=== PATIENT | male | born 1930 | race Caucasian/White ===

== ENCOUNTER 2017-12-31 21:43 | Inpatient (IN) | payer MEDICARE, BC ==
[~2017-12-31] VITALS: Ht 190.5 cm; Wt 76.7 kg
[2017-12-31 22:20] LABS: BASOPHILS # (AUTO) 0.05 x10^3/uL (0-0.1); BASOPHILS % (AUTO) 1 % (0-1); EOSINOPHILS # (AUTO) 0.13 x10^3/uL (0-0.4); EOSINOPHILS % (AUTO) 2 % (1-7); LYMPHOCYTES % (AUTO) 13 % (22-44); MD NO; MEAN CORPUSCULAR HEMOGLOBIN 29.7 pg (27.5-34.5); MEAN CORPUSCULAR HGB CONC 33.1 g/dL (33.2-36.2); MEAN CORPUSCULAR VOLUME 89.7 fL (81-97); MEAN PLATELET VOLUME 8.4 fL (7.4-10.4); MONOCYTES # (AUTO) 0.95 x10^3/uL (0.2-0.8); MONOCYTES % (AUTO) 11 % (2-9); NEUTROPHILS # (AUTO) 6.55 x10^3/uL (1.8-6.8); NEUTROPHILS % (AUTO) 75 % (42-75); PLATELET COUNT 330 x10^3/uL (130-400); RED BLOOD COUNT 4.87 x10^6/uL (4.38-5.82); RED CELL DISTRIBUTION WIDTH 14.4 % (9.4-14.8)
[2017-12-31 22:30] LABS: INTERNATIONAL NORMALIZED RATIO 1.07 (0.93-1.1)
[2017-12-31] MEDS ORDERED: SODIUM CHLORIDE 0.9% 1,000ML IVBOLUS ONE (22:30)
[2017-12-31 22:33] LABS: ALANINE AMINOTRANSFERASE 62 U/L (12-78); ALBUMIN 2.7 g/dL (3.4-5.0); ANION GAP 9 mmol/L (5-15); CALCIUM 8.6 mg/dL (8.5-10.1); CHLORIDE 106 mmol/L (98-107); CREATININE 1.39 mg/dL (0.7-1.3)
[2017-12-31 22:35] LABS: ALKALINE PHOSPHATASE 97 U/L (45-117); BILIRUBIN,TOTAL 0.8 mg/dL (0.2-1.0); TOTAL PROTEIN 6.7 g/dL (6.4-8.2)
[2017-12-31 22:36] LABS: TROPONIN I < 0.015 ng/mL (0.000-0.045)
[2018-01-01 00:43] LABS: MICROSCOPIC AUTO
[2018-01-01 00:46] LABS: CULTURE INDICATED? NO
[2018-01-01] MEDS ORDERED: SODIUM CHLORIDE FLUSH 10ML SYR IVF PRN (02:30)
[2018-01-01] MEDS ORDERED: hydrALAzine 20 MG/ML, 1ML IVPush PRN (04:30)
[2018-01-01] MEDS ORDERED: POLYETHYLENE GLYCOL 17 GM PACKET PO PRN (04:30)
[2018-01-01] MEDS: HEPARIN 5,000 UNITS/ML, 1ML SQ SCH ×3 (04:30→21:10)
[2018-01-01] MEDS ORDERED: ACETAMINOPHEN 325 MG TABLET PO PRN (04:30)
[2018-01-01 06:52] VITALS: BP 146/81
[2018-01-01] MEDS: SODIUM CHLORIDE 0.9% 1,000 ML IV SCH ×3 (07:48→21:10)
[2018-01-01 10:28] LABS: ACETAMINOPHEN < 2 mcg/mL (10-30); SALICYLATE LEVEL < 1.7 mg/dL (2.8-20.0)
[2018-01-01 13:32] VITALS: BP 163/83
[2018-01-01 18:51] VITALS: BP 161/96
[2018-01-01 21:55] LABS: AMPHETAMINE SCREEN, URINE Negative (Negative); BARBITURATE SCREEN, URINE Negative (Negative); BENZODIAZEPINE SCREEN, URINE Negative (Negative); CANNABINOID SCREEN, URINE Negative (Negative); COCAINE SCREEN, URINE Negative (Negative); METHADONE SCREEN, URINE Negative (Negative); OPIATE SCREEN, URINE Negative (Negative)
[2018-01-02 01:03] VITALS: BP 153/84
[2018-01-02] MEDS: SODIUM CHLORIDE 0.9% 1,000 ML IV SCH (04:33)
[2018-01-02] MEDS: HEPARIN 5,000 UNITS/ML, 1ML SQ SCH (04:34)
[2018-01-02 07:42] VITALS: BP 159/92
[2018-01-02 08:14] LABS: BASOPHILS % (AUTO) 1 % (0-1); EOSINOPHILS # (AUTO) 0.02 x10^3/uL (0-0.4); EOSINOPHILS % (AUTO) 0 % (1-7); LYMPHOCYTES # (AUTO) 1.11 x10^3/uL (1-3.4); LYMPHOCYTES % (AUTO) 9 % (22-44); MD NO; MEAN CORPUSCULAR HEMOGLOBIN 29.9 pg (27.5-34.5); MEAN CORPUSCULAR HGB CONC 33.1 g/dL (33.2-36.2); MEAN CORPUSCULAR VOLUME 90.3 fL (81-97); MEAN PLATELET VOLUME 8.6 fL (7.4-10.4); MONOCYTES # (AUTO) 1.19 x10^3/uL (0.2-0.8); MONOCYTES % (AUTO) 10 % (2-9); NEUTROPHILS # (AUTO) 9.28 x10^3/uL (1.8-6.8); NEUTROPHILS % (AUTO) 79 % (42-75); PLATELET COUNT 381 x10^3/uL (130-400); RED BLOOD COUNT 5.12 x10^6/uL (4.38-5.82); RED CELL DISTRIBUTION WIDTH 13.6 % (9.4-14.8)
[2018-01-02 08:23] LABS: ANION GAP 12 mmol/L (5-15); CALCIUM 8.2 mg/dL (8.5-10.1); CHLORIDE 109 mmol/L (98-107); CREATININE 0.92 mg/dL (0.7-1.3)
[2018-01-02 09:44] LABS: CHOL/HDL RATIO 5.2; LDL/HDL RATIO 3.5 (0.5-3.0)
[2018-01-02] MEDS ORDERED: ASPIRIN 81 MG TABLET EC PO SCH (10:00)
[2018-01-02] MEDS ORDERED: SODIUM PHOSPHATE 30 MMOL in SODIUM CHLORIDE 0.9% 500 ML IV ONE (12:00)
[2018-01-02 12:26] LABS: HEMOGLOBIN A1C 5.7 % (4.2-6.3)
[2018-01-02 12:30] VITALS: BP 161/81
[2018-01-02] MEDS: LISINOPRIL 5 MG TABLET PO SCH (13:12)
[2018-01-02] MEDS: ENOXAPARIN 80 MG/0.8 ML SQ SCH (13:12)
[2018-01-02 13:30] VITALS: BP 158/83
[2018-01-02 21:32] VITALS: BP 135/79
[2018-01-02] MEDS: ATORVASTATIN 40 MG TABLET PO SCH (22:39)
[2018-01-02 23:55] VITALS: BP 139/81
[2018-01-03] MEDS: ENOXAPARIN 80 MG/0.8 ML SQ SCH ×2 (01:37→13:16)
[2018-01-03 05:16] LABS: BASOPHILS # (AUTO) 0.19 x10^3/uL (0-0.1); BASOPHILS % (AUTO) 2 % (0-1); EOSINOPHILS # (AUTO) 0.18 x10^3/uL (0-0.4); EOSINOPHILS % (AUTO) 2 % (1-7); LYMPHOCYTES # (AUTO) 1.41 x10^3/uL (1-3.4); LYMPHOCYTES % (AUTO) 15 % (22-44); MD NO; MEAN CORPUSCULAR HEMOGLOBIN 29.7 pg (27.5-34.5); MEAN CORPUSCULAR VOLUME 90.2 fL (81-97); MEAN PLATELET VOLUME 8.7 fL (7.4-10.4); MONOCYTES # (AUTO) 1.04 x10^3/uL (0.2-0.8); MONOCYTES % (AUTO) 11 % (2-9); NEUTROPHILS % (AUTO) 69 % (42-75); PLATELET COUNT 389 x10^3/uL (130-400); RED BLOOD COUNT 4.93 x10^6/uL (4.38-5.82); RED CELL DISTRIBUTION WIDTH 14.1 % (9.4-14.8)
[2018-01-03 05:21] LABS: CHLORIDE 111 mmol/L (98-107)
[2018-01-03 05:31] LABS: ANION GAP 7 mmol/L (5-15); CALCIUM 8.1 mg/dL (8.5-10.1); CREATININE 0.96 mg/dL (0.7-1.3)
[2018-01-03 07:44] VITALS: BP 132/84
[2018-01-03] MEDS: LISINOPRIL 5 MG TABLET PO SCH (09:10)
[2018-01-03 13:28] VITALS: BP 111/71
[2018-01-03] MEDS ORDERED: POTASSIUM PHOSPHATE 22 MEQ in SODIUM CHLORIDE 0.9% 500 ML IV ONE (13:30)
[2018-01-03 20:30] VITALS: BP 129/66
[2018-01-03] MEDS: ATORVASTATIN 40 MG TABLET PO SCH (20:34)
[2018-01-04 01:28] VITALS: BP 157/85
[2018-01-04] MEDS: ENOXAPARIN 80 MG/0.8 ML SQ SCH (01:31)
[2018-01-04 05:51] LABS: ANION GAP 6 mmol/L (5-15); CALCIUM 8.4 mg/dL (8.5-10.1); CHLORIDE 109 mmol/L (98-107); CREATININE 1.13 mg/dL (0.7-1.3)
[2018-01-04 08:22] VITALS: BP 165/71
[2018-01-04] MEDS: LISINOPRIL 5 MG TABLET PO SCH (09:12)
[2018-01-04] MEDS: RIVAROXABAN 20 MG TABLET PO SCH (11:01)
[2018-01-04 15:03] VITALS: BP 160/73
[2018-01-04] MEDS ORDERED: POTASSIUM PHOS 4.4 MEQ/ML IV ONE (16:30)
[2018-01-04] MEDS ORDERED: POTASSIUM PHOSPHATE 22 MEQ in SODIUM CHLORIDE 0.9% 500 ML IV ONE (17:00)
[2018-01-04 18:40] VITALS: BP 172/78
[2018-01-04] MEDS: ATORVASTATIN 40 MG TABLET PO SCH (22:17)
[2018-01-05 01:39] VITALS: BP 138/78
[2018-01-05 02:22] VITALS: BP 135/73
[2018-01-05 07:04] VITALS: BP 166/84
[2018-01-05] MEDS: RIVAROXABAN 20 MG TABLET PO SCH (10:19)
[2018-01-05] MEDS: LISINOPRIL 5 MG TABLET PO SCH (10:20)
[2018-01-05 11:48] VITALS: BP 133/71
[2018-01-05 12:12] VITALS: BP 119/73
[2018-01-05] MEDS: ATORVASTATIN 40 MG TABLET PO SCH (20:17)
[2018-01-05 21:02] VITALS: BP 151/79
[2018-01-06 01:58] VITALS: BP 166/92
[2018-01-06 06:30] VITALS: BP 137/72
[2018-01-06] MEDS: RIVAROXABAN 20 MG TABLET PO SCH (09:15)
[2018-01-06] MEDS: LISINOPRIL 5 MG TABLET PO SCH (09:15)
[2018-01-06 12:09] VITALS: BP 122/68
[2018-01-06 15:53] VITALS: BP 168/85
[2018-01-06 20:05] VITALS: BP 161/100
[2018-01-06] MEDS: ATORVASTATIN 40 MG TABLET PO SCH (20:30)
[2018-01-06 20:35] VITALS: BP 166/91
[2018-01-07 02:39] VITALS: BP 157/82
[2018-01-07 07:16] VITALS: BP 160/81
[2018-01-07] MEDS: LISINOPRIL 5 MG TABLET PO SCH (08:58)
[2018-01-07] MEDS: RIVAROXABAN 20 MG TABLET PO SCH (08:58)
[2018-01-07] MEDS ORDERED: RIVA20TA PO (11:12)
[2018-01-07] MEDS ORDERED: ATOR40TA78 PO (11:12)
[2018-01-07] MEDS ORDERED: LISI5TAB7 PO (11:12)
== END 2018-01-07 15:00 | DRG 64 ==
LOC: ED 23:00 → EDIP 01-01 02:09 → 4NOR 01-01 02:55 → 4WST 01-02 11:24 → 4EST 01-02 19:57
PROVIDERS: ADMIT Hospitalist; ATTEND Family Medicine
DX: I63.40 Cerebral infarction due to embolism of unspecified cerebral artery (principal); G93.41 Metabolic encephalopathy; N17.9 Acute kidney failure, unspecified; D68.59 Other primary thrombophilia; I48.0 Paroxysmal atrial fibrillation; E83.39 Other disorders of phosphorus metabolism; G30.9 Alzheimer's disease, unspecified; N18.3 Chronic kidney disease, stage 3 (moderate); F02.80 Dementia in other diseases classified elsewhere, unspecified severity, without behavioral disturbance, psychotic disturbance, mood disturbance, and anxiety; E78.5 Hyperlipidemia, unspecified; H91.90 Unspecified hearing loss, unspecified ear; I13.10 Hypertensive heart and chronic kidney disease without heart failure, with stage 1 through stage 4 chronic kidney disease, or unspecified chronic kidney disease; I34.0 Nonrheumatic mitral (valve) insufficiency; J45.909 Unspecified asthma, uncomplicated; Z66 Do not resuscitate; Z79.01 Long term (current) use of anticoagulants; Z85.46 Personal history of malignant neoplasm of prostate; G47.33 Obstructive sleep apnea (adult) (pediatric)
CPT/HCPCS: 36415; 70450; 70551; 71045; 80048; 80053; 80061; 80307; 80329; 81001; 82140; 83036; 83735; 84100; 84443; 84484; 85025; 85610; 85730; 93005; 93306; 93880; 99285; J1644; J1650; 92523-GN; G0480; G0515-GN; J7030; J7040

== ENCOUNTER 2018-10-30 09:52 | Day surgery (SDC) | payer BC, MEDICARE ==
[~2018-10-30] VITALS: Ht 188 cm; Wt 71.0 kg
[~2018-10-30 09:52] MED LIST: ATOR40TA78 PO; LISI5TAB7 PO; RIVA20TA PO
[2018-10-30 10:16] VITALS: BP 147/78
[2018-10-30] MEDS ORDERED: LIDOCAINE 1%, 20ML ONE ×2 (10:36→10:37)
== END 2018-10-30 12:17 | disposition home or self-care (01) ==
LOC: CACL 09:52
PROVIDERS: ATTEND Internal Medicine Cardiovascular Disease
DX: I48.91 Unspecified atrial fibrillation (principal); M10.9 Gout, unspecified; I12.9 Hypertensive chronic kidney disease with stage 1 through stage 4 chronic kidney disease, or unspecified chronic kidney disease; N18.9 Chronic kidney disease, unspecified; E78.2 Mixed hyperlipidemia; Z86.73 Personal history of transient ischemic attack (TIA), and cerebral infarction without residual deficits
CPT/HCPCS: 33285; C1764; J3490

== ENCOUNTER 2019-01-29 09:54 | Inpatient (IN) | payer MEDICARE ==
[~2019-01-29] VITALS: Ht 188 cm; Wt 76.7 kg
--- NOTE | 2019-01-29 10:15 | NUR ---
PT TO ROOM AT THIS TIME.
--- NOTE | 2019-01-29 10:36 | NUR ---
88 Y/O MALE PRESENTS TO ED WITH C/O LEFT FOOT EDEMA. PER DAUGHTER IN LAW "WE SAW A CALIBRATION TECHNICIAN AT DR. LEVY'S OFFICE TODAY AND THEY SAID WE NEEDED TO COME HERE. HE'S BEEN FOLLOWED BY [place] ABOUT HIS FOOT." FAMILY BEDSIDE. NO ACUTE DISTRESS NOTED. NO C/O N/V/D, TRAUMA, SYNCOPE, CP, SOB. PT PLACED ON CONT PULSE OX,NIBP
[2019-01-29 10:38] LABS: BASOPHILS # (AUTO) 0.02 x10^3/uL (0-0.1); BASOPHILS % (AUTO) 0 % (0-1); EOSINOPHILS % (AUTO) 3 % (1-7); LYMPHOCYTES # (AUTO) 1.33 x10^3/uL (1-3.4); LYMPHOCYTES % (AUTO) 18 % (22-44); MD NO; MEAN CORPUSCULAR HEMOGLOBIN 31.1 pg (27.5-34.5); MEAN CORPUSCULAR HGB CONC 33.3 g/dL (33.2-36.2); MEAN CORPUSCULAR VOLUME 93.3 fL (81-97); MEAN PLATELET VOLUME 8.3 fL (7.4-10.4); MONOCYTES # (AUTO) 0.64 x10^3/uL (0.2-0.8); MONOCYTES % (AUTO) 9 % (2-9); NEUTROPHILS # (AUTO) 5.21 x10^3/uL (1.8-6.8); NEUTROPHILS % (AUTO) 71 % (42-75); PLATELET COUNT 273 x10^3/uL (130-400); RED BLOOD COUNT 5.21 x10^6/uL (4.38-5.82); RED CELL DISTRIBUTION WIDTH 16.1 % (9.4-14.8)
[2019-01-29 10:50] LABS: ALBUMIN 3.8 g/dL (3.4-5.0); ANION GAP 5 mmol/L (5-15); CALCIUM 9.2 mg/dL (8.5-10.1); CHLORIDE 109 mmol/L (98-107)
[2019-01-29 10:52] LABS: CREATININE 1.17 mg/dL (0.7-1.3)
[2019-01-29 11:17] LABS: HCT (SEDRATE) 46.8 % (39.2-51.8)
--- NOTE | 2019-01-29 11:46 | NUR ---
PT RESTING ON GURNEY. NO ACUTE DISTRESS NOTED. FAMILY BEDSIDE.
--- NOTE | 2019-01-29 12:19 | NUR ---
PIV ESTABLISHED. PT TOLERATED WITH NO COMPLICATIONS.NO NEEDS REQUESTED AT THIS TIME. FAMILIY BEDSIDE.
[2019-01-29] MEDS ORDERED: SODIUM CHLORIDE FLUSH 10ML SYR IVF PRN (13:30)
--- NOTE | 2019-01-29 13:30 | NUR ---
THIS FLOAT RN AT BEDSIDE TO RELIEVE PRIMARY RN LIBIA FOR BREAK. PT STABLE, DENIES NEEDS AT THIS TIME. CAREGIVER AT BEDSIDE.
--- NOTE | 2019-01-29 14:13 | NUR ---
RECEIVED BEDSIDE REPORT FROM ACE HIDALGO. REPORT CALLED TO ACE QUINTERO. ALL QUESTIONS ANSWERED
--- NOTE | 2019-01-29 14:42 | NUR ---
LEVEL OF CARE CHANGE TO MED TELE PER DR. SCHMIDT. REPORT TO ACE BENSON. ALL QUESTIONS ANSWERED
[2019-01-29] MEDS ORDERED: hydrALAzine 20 MG/ML, 1ML IVPush PRN (15:00)
[2019-01-29] MEDS ORDERED: POLYETHYLENE GLYCOL 17 GM PACKET PO PRN (15:00)
[2019-01-29] MEDS ORDERED: DOCUSATE 100 MG CAPSULE PO PRN (15:00)
[2019-01-29] MEDS ORDERED: ACETAMINOPHEN 325 MG TABLET PO PRN (15:00)
[2019-01-29] MEDS ORDERED: BISACODYL 10 MG SUPP PR PRN (15:00)
[2019-01-29] MEDS ORDERED: morphine SULFATE 10 MG/ML, 1ML IVPush PRN (15:00)
--- NOTE | 2019-01-29 15:00 | NUR ---
PT TRANSFERRED TO FLOOR. PT LEFT WITH ALL PERSONAL BELONGINGS.
[2019-01-29 15:08] VITALS: BP 164/97
[2019-01-29 15:13] VITALS: BP 164/97
[2019-01-29] MEDS: SODIUM CHLORIDE 0.9% 1,000 ML IV SCH (15:49)
[2019-01-29 15:50] LABS: INTERNATIONAL NORMALIZED RATIO 1.15 (0.93-1.1)
[2019-01-29 16:00] LABS: HEMOGLOBIN A1C 5.7 % (4.2-6.3)
[2019-01-29 16:41] LABS: ALANINE AMINOTRANSFERASE 25 U/L (12-78); ALBUMIN 3.8 g/dL (3.4-5.0); BILIRUBIN, DIRECT 0.3 mg/dL (0.1-0.2)
[2019-01-29 16:45] LABS: ALKALINE PHOSPHATASE 72 U/L (45-117); BILIRUBIN,INDIRECT 0.4 mg/dL (0.0-2.0); BILIRUBIN,TOTAL 0.7 mg/dL (0.2-1.0); TOTAL PROTEIN 6.9 g/dL (6.4-8.2); TROPONIN I < 0.015 ng/mL (0.000-0.045)
[2019-01-29] MEDS ORDERED: VANCOMYCIN PER PHARMACY MC PRN (17:00)
[2019-01-29] MEDS ORDERED: RANI150C PO (17:21)
[2019-01-29] MEDS ORDERED: [UNRECOGNIZED DRUG - CODE] TP (17:21)
[2019-01-29] MEDS ORDERED: AMLO-150 PO (17:21)
[2019-01-29] MEDS ORDERED: RIVA15TA PO (17:21)
[2019-01-29] MEDS ORDERED: ACET325T14 PO (17:21)
[2019-01-29] MEDS ORDERED: COLC0.6T37 PO ×2 (17:21)
[2019-01-29] MEDS ORDERED: FEBU40TA PO (17:21)
[2019-01-29] MEDS ORDERED: POVI30SO TP (17:21)
[2019-01-29] MEDS ORDERED: LAMO25TA5 PO (17:21)
[2019-01-29] MEDS ORDERED: CHOL2000 PO (17:21)
[2019-01-29] MEDS ORDERED: SULF1TAB24 PO (17:21)
[2019-01-29] MEDS ORDERED: OMEG1CAP23 PO (17:21)
[2019-01-29] MEDS ORDERED: PHARMACOKINETIC CONSULTATION MC ONE (17:30)
[2019-01-29] MEDS ORDERED: PHARMACOKINETIC MONITORING MC PRN (17:30)
[2019-01-29] MEDS: PIPERACILLIN/TAZO/PMX 3.375GM 50 ML IV SCH ×2 (17:32→22:52)
[2019-01-29] MEDS ORDERED: GADOBUTROL 7.5 MMOL/7.5 ML PFS ONE (18:54)
[2019-01-29] MEDS: VANCOMYCIN 1,300 MG in SODIUM CHLORIDE 0.9% 250 ML IV SCH (19:31)
[2019-01-29 19:48] VITALS: BP 121/55
[2019-01-29 20:41] VITALS: BP 108/59
[2019-01-29] MEDS: ATORVASTATIN 40 MG TABLET PO SCH (20:43)
[2019-01-29] MEDS: FAMOTIDINE 20 MG TABLET PO SCH (20:44)
[2019-01-29] MEDS: LAMOTRIGINE 25 MG TABLET PO SCH (20:44)
[2019-01-29 21:34] VITALS: BP 129/65
[2019-01-29] MEDS: AMLODIPINE 5 MG TABLET PO SCH (21:36)
[2019-01-30 00:49] VITALS: BP 131/73
[2019-01-30] MEDS: PIPERACILLIN/TAZO/PMX 3.375GM 50 ML IV SCH ×3 (04:58→18:42)
[2019-01-30 05:10] LABS: BASOPHILS # (AUTO) 0.05 x10^3/uL (0-0.1); BASOPHILS % (AUTO) 1 % (0-1); EOSINOPHILS # (AUTO) 0.45 x10^3/uL (0-0.4); EOSINOPHILS % (AUTO) 5 % (1-7); LYMPHOCYTES # (AUTO) 1.42 x10^3/uL (1-3.4); LYMPHOCYTES % (AUTO) 17 % (22-44); MD NO; MEAN CORPUSCULAR HGB CONC 33.3 g/dL (33.2-36.2); MEAN CORPUSCULAR VOLUME 93.1 fL (81-97); MEAN PLATELET VOLUME 8.4 fL (7.4-10.4); MONOCYTES # (AUTO) 0.92 x10^3/uL (0.2-0.8); MONOCYTES % (AUTO) 11 % (2-9); NEUTROPHILS # (AUTO) 5.61 x10^3/uL (1.8-6.8); NEUTROPHILS % (AUTO) 67 % (42-75); PLATELET COUNT 240 x10^3/uL (130-400); RED BLOOD COUNT 4.81 x10^6/uL (4.38-5.82); RED CELL DISTRIBUTION WIDTH 15.8 % (9.4-14.8)
[2019-01-30 05:16] LABS: ALANINE AMINOTRANSFERASE 23 U/L (12-78); ALBUMIN 3.3 g/dL (3.4-5.0); ANION GAP 6 mmol/L (5-15); CALCIUM 8.4 mg/dL (8.5-10.1); CHLORIDE 110 mmol/L (98-107); CREATININE 1.19 mg/dL (0.7-1.3)
[2019-01-30 05:20] LABS: ALKALINE PHOSPHATASE 61 U/L (45-117); BILIRUBIN,TOTAL 0.9 mg/dL (0.2-1.0); CHOL/HDL RATIO 2.5; CHOLESTEROL, TOTAL 104 mg/dL (140-239); HDL CHOL % 40 % (26-37); HDL CHOLESTEROL (DIRECT) 42 mg/dL (40-60); LDL CHOLESTEROL,CALCULATED 49 mg/dL (54-169); LDL/HDL RATIO 1.2 (0.5-3.0); TOTAL PROTEIN 5.9 g/dL (6.4-8.2); TRIGLYCERIDES 65 mg/dL (50-200); VLDL CHOLESTEROL 13 mg/dL (0-25)
[2019-01-30] MEDS: SODIUM CHLORIDE 0.9% 1,000 ML IV SCH (06:16)
[2019-01-30 08:00] VITALS: BP 125/62
[2019-01-30] MEDS: COLCHICINE 0.6 MG TABLET PO SCH (08:19)
[2019-01-30] MEDS: FEBUXOSTAT 40 MG TABLET PO SCH (08:19)
[2019-01-30] MEDS ORDERED: LISINOPRIL 5 MG TABLET PO SCH (09:00)
[2019-01-30 15:37] VITALS: BP 137/74
[2019-01-30] MEDS: RIVAROXABAN 15 MG TABLET PO SCH (18:42)
[2019-01-30 19:36] VITALS: BP 152/73
[2019-01-30] MEDS: ATORVASTATIN 40 MG TABLET PO SCH (21:21)
[2019-01-30] MEDS: AMLODIPINE 5 MG TABLET PO SCH (21:21)
[2019-01-30] MEDS: LAMOTRIGINE 25 MG TABLET PO SCH (21:21)
[2019-01-30] MEDS: FAMOTIDINE 20 MG TABLET PO SCH (21:21)
[2019-01-31 03:30] VITALS: BP 146/91
[2019-01-31] MEDS: VANCOMYCIN 1,300 MG in SODIUM CHLORIDE 0.9% 250 ML IV SCH (03:36)
[2019-01-31 04:56] LABS: BASOPHILS # (AUTO) 0.05 x10^3/uL (0-0.1); BASOPHILS % (AUTO) 1 % (0-1); EOSINOPHILS # (AUTO) 0.45 x10^3/uL (0-0.4); EOSINOPHILS % (AUTO) 6 % (1-7); LYMPHOCYTES # (AUTO) 1.43 x10^3/uL (1-3.4); LYMPHOCYTES % (AUTO) 19 % (22-44); MD NO; MEAN CORPUSCULAR HEMOGLOBIN 30.7 pg (27.5-34.5); MEAN CORPUSCULAR HGB CONC 32.6 g/dL (33.2-36.2); MEAN CORPUSCULAR VOLUME 94.2 fL (81-97); MEAN PLATELET VOLUME 8.4 fL (7.4-10.4); MONOCYTES % (AUTO) 11 % (2-9); NEUTROPHILS # (AUTO) 4.69 x10^3/uL (1.8-6.8); NEUTROPHILS % (AUTO) 63 % (42-75); PLATELET COUNT 240 x10^3/uL (130-400); RED BLOOD COUNT 4.94 x10^6/uL (4.38-5.82); RED CELL DISTRIBUTION WIDTH 15.9 % (9.4-14.8)
[2019-01-31 05:07] LABS: ALBUMIN 3.2 g/dL (3.4-5.0); ANION GAP 6 mmol/L (5-15); CALCIUM 8.5 mg/dL (8.5-10.1); CHLORIDE 110 mmol/L (98-107)
[2019-01-31 05:11] LABS: ALANINE AMINOTRANSFERASE 21 U/L (12-78); ALKALINE PHOSPHATASE 58 U/L (45-117); BILIRUBIN,TOTAL 0.7 mg/dL (0.2-1.0); CREATININE 1.32 mg/dL (0.7-1.3); TOTAL PROTEIN 5.9 g/dL (6.4-8.2)
[2019-01-31] MEDS: PIPERACILLIN/TAZO/PMX 3.375GM 50 ML IV SCH ×2 (05:41→10:28)
[2019-01-31 08:00] VITALS: BP 158/78
[2019-01-31] MEDS: FEBUXOSTAT 40 MG TABLET PO SCH (10:27)
[2019-01-31] MEDS: COLCHICINE 0.6 MG TABLET PO SCH (10:27)
[2019-01-31] MEDS: SODIUM CHLORIDE 0.9% 1,000 ML IV SCH (12:48)
[2019-01-31 14:47] VITALS: BP 123/64
[2019-01-31] MEDS: CEFTAROLINE 600 MG in SODIUM CHLORIDE 0.9% 100 ML IV SCH (16:13)
[2019-01-31] MEDS: RIVAROXABAN 15 MG TABLET PO SCH (17:50)
[2019-01-31 18:34] VITALS: BP 157/64
[2019-01-31] MEDS: FAMOTIDINE 20 MG TABLET PO SCH (21:15)
[2019-01-31] MEDS: ATORVASTATIN 40 MG TABLET PO SCH (21:16)
[2019-01-31] MEDS: LAMOTRIGINE 25 MG TABLET PO SCH (21:16)
[2019-01-31] MEDS: AMLODIPINE 5 MG TABLET PO SCH (21:16)
[2019-02-01 01:32] VITALS: BP 117/70
[2019-02-01] MEDS: SODIUM CHLORIDE 0.9% 1,000 ML IV SCH ×2 (01:51→15:55)
[2019-02-01] MEDS: CEFTAROLINE 600 MG in SODIUM CHLORIDE 0.9% 100 ML IV SCH ×2 (03:47→15:55)
[2019-02-01 05:29] LABS: BASOPHILS # (AUTO) 0.03 x10^3/uL (0-0.1); BASOPHILS % (AUTO) 0 % (0-1); EOSINOPHILS # (AUTO) 0.39 x10^3/uL (0-0.4); EOSINOPHILS % (AUTO) 6 % (1-7); LYMPHOCYTES # (AUTO) 1.36 x10^3/uL (1-3.4); LYMPHOCYTES % (AUTO) 19 % (22-44); MD NO; MEAN CORPUSCULAR HEMOGLOBIN 31.3 pg (27.5-34.5); MEAN CORPUSCULAR HGB CONC 33.7 g/dL (33.2-36.2); MEAN PLATELET VOLUME 8.2 fL (7.4-10.4); MONOCYTES # (AUTO) 0.79 x10^3/uL (0.2-0.8); MONOCYTES % (AUTO) 11 % (2-9); NEUTROPHILS # (AUTO) 4.57 x10^3/uL (1.8-6.8); NEUTROPHILS % (AUTO) 64 % (42-75); PLATELET COUNT 235 x10^3/uL (130-400); RED BLOOD COUNT 4.76 x10^6/uL (4.38-5.82); RED CELL DISTRIBUTION WIDTH 15.7 % (9.4-14.8)
[2019-02-01 05:39] LABS: ALBUMIN 2.8 g/dL (3.4-5.0); ANION GAP 6 mmol/L (5-15); CALCIUM 8.3 mg/dL (8.5-10.1); CHLORIDE 114 mmol/L (98-107)
[2019-02-01 05:40] LABS: CREATININE 1.05 mg/dL (0.7-1.3)
[2019-02-01 07:54] VITALS: BP 150/85
[2019-02-01] MEDS: FEBUXOSTAT 40 MG TABLET PO SCH (09:14)
[2019-02-01] MEDS: COLCHICINE 0.6 MG TABLET PO SCH (09:14)
[2019-02-01 14:42] VITALS: BP 131/77
[2019-02-01] MEDS: RIVAROXABAN 15 MG TABLET PO SCH (15:55)
[2019-02-01 19:09] VITALS: BP 147/79
[2019-02-01] MEDS: FAMOTIDINE 20 MG TABLET PO SCH (22:26)
[2019-02-01] MEDS: AMLODIPINE 5 MG TABLET PO SCH (22:26)
[2019-02-01] MEDS: LAMOTRIGINE 25 MG TABLET PO SCH (22:26)
[2019-02-01] MEDS: ATORVASTATIN 40 MG TABLET PO SCH (22:26)
[2019-02-02 01:20] VITALS: BP 135/76
[2019-02-02] MEDS: CEFTAROLINE 600 MG in SODIUM CHLORIDE 0.9% 100 ML IV SCH ×2 (03:42→16:10)
[2019-02-02] MEDS: SODIUM CHLORIDE 0.9% 1,000 ML IV SCH ×2 (05:15→18:21)
[2019-02-02 05:42] LABS: BASOPHILS # (AUTO) 0.03 x10^3/uL (0-0.1); BASOPHILS % (AUTO) 0 % (0-1); EOSINOPHILS # (AUTO) 0.61 x10^3/uL (0-0.4); EOSINOPHILS % (AUTO) 8 % (1-7); LYMPHOCYTES # (AUTO) 1.75 x10^3/uL (1-3.4); LYMPHOCYTES % (AUTO) 22 % (22-44); MD NO; MEAN CORPUSCULAR HGB CONC 33.2 g/dL (33.2-36.2); MEAN CORPUSCULAR VOLUME 93.5 fL (81-97); MEAN PLATELET VOLUME 8.2 fL (7.4-10.4); MONOCYTES # (AUTO) 0.76 x10^3/uL (0.2-0.8); MONOCYTES % (AUTO) 10 % (2-9); NEUTROPHILS # (AUTO) 4.72 x10^3/uL (1.8-6.8); NEUTROPHILS % (AUTO) 60 % (42-75); PLATELET COUNT 240 x10^3/uL (130-400); RED BLOOD COUNT 4.69 x10^6/uL (4.38-5.82)
[2019-02-02 05:56] LABS: CHLORIDE 114 mmol/L (98-107)
[2019-02-02 06:02] LABS: ALANINE AMINOTRANSFERASE 22 U/L (12-78); ALBUMIN 2.8 g/dL (3.4-5.0); ALKALINE PHOSPHATASE 53 U/L (45-117); ANION GAP 5 mmol/L (5-15); BILIRUBIN,TOTAL 0.6 mg/dL (0.2-1.0); CALCIUM 8.4 mg/dL (8.5-10.1); CREATININE 0.92 mg/dL (0.7-1.3); TOTAL PROTEIN 5.4 g/dL (6.4-8.2)
[2019-02-02 09:08] VITALS: BP 158/75
[2019-02-02] MEDS: FEBUXOSTAT 40 MG TABLET PO SCH (09:11)
[2019-02-02] MEDS: COLCHICINE 0.6 MG TABLET PO SCH (09:11)
[2019-02-02 14:00] VITALS: BP 125/73
[2019-02-02] MEDS ORDERED: DOXY100C2 PO (14:48)
[2019-02-02] MEDS: RIVAROXABAN 15 MG TABLET PO SCH (16:10)
[2019-02-02 19:50] VITALS: BP 161/80
[2019-02-02] MEDS: FAMOTIDINE 20 MG TABLET PO SCH (20:56)
[2019-02-02] MEDS: AMLODIPINE 5 MG TABLET PO SCH (20:56)
[2019-02-02] MEDS: ATORVASTATIN 40 MG TABLET PO SCH (20:56)
[2019-02-02] MEDS: LAMOTRIGINE 25 MG TABLET PO SCH (20:56)
[2019-02-03 01:00] VITALS: BP 147/74
[2019-02-03] MEDS: CEFTAROLINE 600 MG in SODIUM CHLORIDE 0.9% 100 ML IV SCH (03:14)
[2019-02-03 07:02] VITALS: BP 135/70
[2019-02-03] MEDS: FEBUXOSTAT 40 MG TABLET PO SCH (07:53)
[2019-02-03] MEDS: COLCHICINE 0.6 MG TABLET PO SCH (07:54)
[2019-02-03] MEDS: SODIUM CHLORIDE 0.9% 1,000 ML IV SCH (10:14)
[2019-02-03] MEDS ORDERED: RIVA15TA PO (15:12)
== END 2019-02-03 10:40 | disposition hospice, home (50) | DRG 540 ==
LOC: ED 13:05 → EDIP 13:06 → ED 13:17 → 4WST 14:57 → 5SO 16:15 → 4NOR 01-31 18:26
PROVIDERS: ADMIT Hospitalist; ATTEND Hospitalist
DX: M86.272 Subacute osteomyelitis, left ankle and foot (principal); I96 Gangrene, not elsewhere classified; D68.69 Other thrombophilia; I70.201 Unspecified atherosclerosis of native arteries of extremities, right leg; I77.1 Stricture of artery; E55.9 Vitamin D deficiency, unspecified; E78.5 Hyperlipidemia, unspecified; F03.90 Unspecified dementia, unspecified severity, without behavioral disturbance, psychotic disturbance, mood disturbance, and anxiety; G47.33 Obstructive sleep apnea (adult) (pediatric); G89.29 Other chronic pain; H91.90 Unspecified hearing loss, unspecified ear; N18.3 Chronic kidney disease, stage 3 (moderate); I12.9 Hypertensive chronic kidney disease with stage 1 through stage 4 chronic kidney disease, or unspecified chronic kidney disease; I34.0 Nonrheumatic mitral (valve) insufficiency; I48.91 Unspecified atrial fibrillation; I71.2 Thoracic aortic aneurysm, without rupture; J45.909 Unspecified asthma, uncomplicated; M10.9 Gout, unspecified; Z66 Do not resuscitate; Z79.2 Long term (current) use of antibiotics; Z79.01 Long term (current) use of anticoagulants; Z82.49 Family history of ischemic heart disease and other diseases of the circulatory system; Z85.3 Personal history of malignant neoplasm of breast; Z85.46 Personal history of malignant neoplasm of prostate; Z86.73 Personal history of transient ischemic attack (TIA), and cerebral infarction without residual deficits; Z90.79 Acquired absence of other genital organ(s); Z90.89 Acquired absence of other organs
CPT/HCPCS: 36415; 80048; 80053; 80061; 80076; 82040; 83036; 83735; 84443; 84484; 85025; 85610; 85651; 86141; 87040; 87070; 87077; 87186; 87205; 93005; 99285; A9585; G0378; J0712; J2543; J3370; J7030; J7050